=== PATIENT | male | born 1940 | race Caucasian/White ===

== ENCOUNTER 2019-01-07 05:24 | Inpatient (IN) | payer MEDICARE, OTHER ==
[2019-01-07 05:43] LABS: AADO2 Arterial 213.3 mmHg (7.0-24.0); Allen Test ACCEPTAB; Arterial Base Excess 2.2 mmol/L (-3.0-3); Arterial Blood Gas Oxygen Sat 99.6 mmHG (95.0-100.0); Arterial COHb 0.3 % (0.0-3.0); Arterial Fraction of Oxyhgb 98.9 % (93.0-99.0); Arterial HCO3 26.5 mmol/L (22.0-26.0); Arterial MetHb 0.4 % (0.0-1.5); Arterial pCO2 40.3 mmhg (35-45); Blood Gas IEPAP 15/5; Blood Gas PS 10; MODE MASK - BIPAP; Site Left Radial
[2019-01-07 05:50] LABS: ADD MAN DIFF? NO
[2019-01-07 05:53] LABS: ABNORMAL IP MESSAGE 1; BASOPHIL # 0.1 10^3/ul (0.0-0.1); BASOPHILS % 0.5 % (0.0-2.0); EOSINOPHILS % 0.1 % (0.0-7.0); HEMATOCRIT 32.4 % (42.0-52.0); HEMOGLOBIN 9.8 g/dl (14.0-18.0); LYMPHOCYTES # 5.9 10^3/ul (0.8-2.9); LYMPHOCYTES % 39.8 % (15.0-51.0); MEAN CORPUSCULAR HEMOGLOBIN 28.8 pg (29.0-33.0); MEAN CORPUSCULAR HGB CONC 30.2 g/dl (32.0-37.0); MEAN CORPUSCULAR VOLUME 95.3 fl (82.0-101.0); MEAN PLATELET VOLUME 9.5 fl (7.4-10.4); MONOCYTE # 3.3 10^3/ul (0.3-0.9); MONOCYTES % 22.6 % (0.0-11.0); NEUTROPHIL # 4.5 10^3/ul (1.6-7.5); NEUTROPHILS % 30.4 % (39.0-77.0); NUCLEATED RED BLOOD CELLS # 0.7 10^3/ul (0.0-0.0); NUCLEATED RED BLOOD CELLS% 4.6 /100WBC (0.0-0.0); PLATELET COUNT 711 10^3/UL (140-415); POSITIVE DIFF @See below; RED CELL DISTRIBUTION WIDTH 17.7 % (11.5-14.5)
[2019-01-07 05:53] LABS: WHITE BLOOD COUNT 14.8 10^3/ul (4.8-10.8)
[2019-01-07] MEDS: SODIUM CHLORIDE 0.9% 1L BAG IV* (06:12)
[2019-01-07] MEDS: IPRATROPIUM (NEB) 0.5 MG/2.5 ML AMP INH (06:14)
[2019-01-07] MEDS: ALBUTEROL 0.5% (NEB) 2.5 MG/0.5 ML AMP INH (06:14)
[2019-01-07] MEDS: CEFEPIME 2GM/50 ML (PMX) 50 ML IVPB (06:17)
[2019-01-07 06:18] LABS: INR 1.03; PROTIME 13.6 Sec (11.9-14.9); PT RATIO 1.1
[2019-01-07 06:19] LABS: PARTIAL THROMBOPLASTIN TIME 30.5 Sec (23.0-35.0)
[2019-01-07 06:21] LABS: ALANINE AMINOTRANSFERASE 15 IU/L (13-69); ALBUMIN 3.7 g/dl (3.3-4.9); ALBUMIN/GLOBULIN RATIO 1.19; ALKALINE PHOSPHATASE 81 IU/L (42-121); ANION GAP 10 (5-13); ASPARTATE AMINO TRANSFERASE 27 IU/L (15-46); BILIRUBIN,INDIRECT 0.4 mg/dl (0-1.1); BILIRUBIN,TOTAL 0.4 mg/dl (0.2-1.3); BLOOD UREA NITROGEN 16 mg/dl (7-20); CALCIUM 8.9 mg/dl (8.4-10.2); CARBON DIOXIDE 29 mmol/L (21-31); CHLORIDE 103 mmol/L (97-110); CREATININE 1.24 mg/dl (0.61-1.24); GLUCOSE 146 mg/dl (70-220); POTASSIUM 3.6 mmol/L (3.5-5.1); SODIUM 142 mmol/L (135-144); TOTAL PROTEIN 6.8 g/dl (6.1-8.1)
[2019-01-07 06:31] LABS: B-TYPE NATRIURETIC PEPTIDE 1220 PG/ML (0-450); TROPONIN-I 0.013 ng/ml (0.000-0.120)
[2019-01-07] MEDS: VANCOMYCIN 1 GM (PMX) 250 ML IVPB (06:48)
[2019-01-07] MEDS ORDERED: ONDANSETRON 4 MG INJ IV ×2 (07:00→07:30)
[2019-01-07] MEDS ORDERED: ACETAMINOPHEN 325 MG TAB PO ×2 (07:00→07:30)
[2019-01-07] MEDS ORDERED: LORAZEPAM 2 MG INJ IV (07:30)
[2019-01-07] MEDS ORDERED: NACL 0.9% 3 ML SYG IV (07:30)
[2019-01-07] MEDS ORDERED: hydrALAzine 20 MG INJ IV (07:30)
[2019-01-07] MEDS ORDERED: DOCUSATE SODIUM 100 MG CAP PO (07:30)
[2019-01-07] MEDS ORDERED: VANCOMYCIN IV PER PHARMACY XX (07:30)
[2019-01-07] MEDS ORDERED: ALBUTEROL/IPRATROPIUM (NEB) 3 ML AMP HHN (07:30)
[2019-01-07] MEDS ORDERED: morphine 2 MG INJ IV (07:30)
[2019-01-07] MEDS ORDERED: MAGNESIUM HYDROXIDE 30ML CUP PO (07:30)
[2019-01-07] MEDS ORDERED: NITROGLYCERIN (SL) 0.4 MG TAB SL (07:30)
[2019-01-07 08:08] LABS: ANISOCYTOSIS 1+ (0-0); BAND NEUTROPHILS #M 2.2 10^3/ul (0.0-0.6); BAND NEUTROPHILS % (M) 15 % (0-4); BASOPHIL #M 0.2 10^3/ul (0.0-0.0); BASOPHILS % (M) 2 % (0-2); EOSINOPHILS % (M) 3 % (0-7); ERYTHROBLAST% (NRBC) (M) 5 % (0-0); LYMPHOCYTES #M 4.5 10^3/ul (0.8-2.9); LYMPHOCYTES % (M) 31 % (15-51); METAMYELOCYTES #M 0.2 10^3/ul (0.0-0.0); METAMYELOCYTES %M 2 % (0-0); MONOCYTE #M 2.5 10^3/ul (0.3-0.9); MONOCYTES % (M) 17 % (0-11); MYELOCYTES #M 0.5 10^3/ul (0.0-0.0); MYELOCYTES % (M) 4 % (0-0); OVALOCYTES 1+ (0-0); PLATELET ESTIMATE INCREASED; POIKILOCYTOSIS 1+ (0-0); POLYCHROMASIA 3+ (0-0); PROMYELOCYTES #M 0.2 10^3/ul (0-0); PROMYELOCYTES % (M) 2 % (0-0); REACTIVE LYMPHOCYTES #M 1.4 10^3/ul (0.0-0.0); REACTIVE LYMPHOCYTES% (M) 10 % (0-0); SEG NEUT #M 2.4 10^3/ul (1.6-7.5); SEGMENTED NEUTROPHILS (M) % 14 % (39-77); SMUDGE%M 11 % (0-0); TEAR DROP CELLS 1+ (0-0)
[2019-01-07 08:50] LABS: INR 1.11; PROTIME 14.4 Sec (11.9-14.9); PT RATIO 1.1
[2019-01-07] MEDS: HYDROCODONE/APAP (5/325) TAB PO (08:50)
[2019-01-07] MEDS: HEPARIN 5,000 UNIT/1 ML VIAL SC ×2 (08:50→20:48)
[2019-01-07] MEDS: ESCITALOPRAM 10 MG TAB PO (08:50)
[2019-01-07 08:51] LABS: PARTIAL THROMBOPLASTIN TIME 30.5 Sec (23.0-35.0)
[2019-01-07 08:55] LABS: LACTIC ACID 3.5 mmol/L (0.5-2.0)
[2019-01-07] MEDS: FLUTICASONE/VILANTEROL 100-25 INH (09:00)
[2019-01-07] MEDS ORDERED: NON-FORMULARY/PATIENT OWN MED (Salmeterol Xinaf/Fluticasone* (Advair*) 1 INH) INH (09:00)
[2019-01-07 09:09] LABS: FREE T4 (FREE THYROXINE) 1.16 ng/dl (0.85-1.93)
[2019-01-07] MEDS: SOD CHLORIDE 0.45% 1,000 ML IV (09:14)
[2019-01-07] MEDS: ASPIRIN 81 MG TAB PO (10:23)
[2019-01-07 10:31] LABS: MAGNESIUM 1.6 mg/dl (1.7-2.5)
[2019-01-07 11:10] LABS: CREATINE KINASE 28 IU/L (23-200)
[2019-01-07 11:18] LABS: LACTIC ACID 2.8 mmol/L (0.5-2.0)
[2019-01-07 11:21] LABS: CK INDEX 1.5; CK-MB 0.43 ng/ml (0.0-2.4); TROPONIN-I 0.018 ng/ml (0.000-0.120)
[2019-01-07] MEDS: PIPER-TAZO 3.375 GM IV (PMX) 100 ML IVPB ×3 (11:31→22:45)
[2019-01-07] MEDS ORDERED: ALBUTEROL 18 GM INHALER INH (12:00)
[2019-01-07] MEDS: VANCOMYCIN HCL 1.25 GM in SOD CHLORIDE 0.9% 250 ML IVPB (12:29)
[2019-01-07] MEDS: IPRATROPIUM (NEB) 0.5 MG/2.5 ML AMP HHN ×3 (13:10→20:17)
[2019-01-07] MEDS: LEVALBUTEROL (NEB) 1.25 MG/0.5 ML AMP HHN ×3 (13:10→20:17)
[2019-01-07 15:24] LABS: CREATINE KINASE 55 IU/L (23-200)
[2019-01-07 15:29] LABS: LACTIC ACID 7.8 mmol/L (0.5-2.0)
[2019-01-07 15:34] LABS: CK INDEX 1.3
[2019-01-07 15:38] LABS: TROPONIN-I 0.021 ng/ml (0.000-0.120)
[2019-01-07 16:00] LABS: PROCALCITONIN 0.46 ng/mL (0.00-0.10)
[2019-01-07] MEDS: SOD CHLORIDE 0.9% 500 ML IV (17:10)
[2019-01-07] MEDS: BUPROPION 75 MG TAB PO (20:43)
[2019-01-07] MEDS: ALPRAZOLAM 0.5 MG TAB PO (22:06)
[2019-01-08] MEDS: IPRATROPIUM (NEB) 0.5 MG/2.5 ML AMP HHN ×6 (00:36→21:12)
[2019-01-08] MEDS: LEVALBUTEROL (NEB) 1.25 MG/0.5 ML AMP HHN ×6 (00:36→21:12)
[2019-01-08 05:25] LABS: ADD MAN DIFF? NO
[2019-01-08 05:33] LABS: ABNORMAL IP MESSAGE 1; BASOPHIL # 0.1 10^3/ul (0.0-0.1); BASOPHILS % 0.8 % (0.0-2.0); EOSINOPHILS % 0.1 % (0.0-7.0); HEMATOCRIT 27.8 % (42.0-52.0); HEMOGLOBIN 8.4 g/dl (14.0-18.0); LYMPHOCYTES # 1.5 10^3/ul (0.8-2.9); LYMPHOCYTES % 15.9 % (15.0-51.0); MEAN CORPUSCULAR HEMOGLOBIN 28.5 pg (29.0-33.0); MEAN CORPUSCULAR HGB CONC 30.2 g/dl (32.0-37.0); MEAN CORPUSCULAR VOLUME 94.2 fl (82.0-101.0); MEAN PLATELET VOLUME 9.6 fl (7.4-10.4); MONOCYTE # 2.3 10^3/ul (0.3-0.9); NEUTROPHIL # 4.5 10^3/ul (1.6-7.5); NEUTROPHILS % 49.7 % (39.0-77.0); NUCLEATED RED BLOOD CELLS # 0.3 10^3/ul (0.0-0.0); NUCLEATED RED BLOOD CELLS% 3.1 /100WBC (0.0-0.0); PLATELET COUNT 531 10^3/UL (140-415); POSITIVE DIFF @See below; RED BLOOD COUNT 2.95 10^6/ul (4.70-6.10); RED CELL DISTRIBUTION WIDTH 18.3 % (11.5-14.5)
[2019-01-08 05:33] LABS: WHITE BLOOD COUNT 9.1 10^3/ul (4.8-10.8)
[2019-01-08 05:49] LABS: ANION GAP 4 (5-13); BLOOD UREA NITROGEN 14 mg/dl (7-20); CALCIUM 8.2 mg/dl (8.4-10.2); CARBON DIOXIDE 29 mmol/L (21-31); CHLORIDE 110 mmol/L (97-110); CREATININE 1.14 mg/dl (0.61-1.24); GLUCOSE 104 mg/dl (70-220); MAGNESIUM 1.7 mg/dl (1.7-2.5); PHOSPHORUS 3.6 mg/dl (2.5-4.9); POTASSIUM 3.7 mmol/L (3.5-5.1); SODIUM 143 mmol/L (135-144)
[2019-01-08 05:54] LABS: CHOLESTEROL 113 mg/dl (100-200)
[2019-01-08 05:54] LABS: CHOL/HDL RATIO 2.7 RATIO; HDL CHOLESTEROL 41 mg/dl (31-75); LDL CHOLESTEROL,CALCULATED 54 mg/dl; TRIGLYCERIDES 91 mg/dl (0-149)
[2019-01-08 05:58] LABS: MONOCYTES % 25.3 % (0.0-11.0)
[2019-01-08] MEDS: PIPER-TAZO 3.375 GM IV (PMX) 100 ML IVPB ×3 (06:15→18:00)
[2019-01-08] MEDS: PANTOPRAZOLE (EC) 40 MG TAB PO (06:15)
[2019-01-08 06:18] LABS: THYROID STIMULATING HORMONE 0.722 MIU/L (0.465-4.680)
[2019-01-08] MEDS: ALENDRONATE 10 MG TAB PO (07:00)
[2019-01-08 07:09] LABS: PROCALCITONIN 0.34 ng/mL (0.00-0.10)
[2019-01-08] MEDS: MAGNESIUM SULFATE 1 GM/D5W 100 ML IVPB (08:44)
[2019-01-08] MEDS: ESCITALOPRAM 10 MG TAB PO (08:44)
[2019-01-08] MEDS: ASPIRIN 81 MG TAB PO (08:45)
[2019-01-08] MEDS: BUPROPION 75 MG TAB PO ×2 (08:45→20:45)
[2019-01-08] MEDS: HEPARIN 5,000 UNIT/1 ML VIAL SC ×2 (08:56→20:58)
[2019-01-08] MEDS: FLUTICASONE/VILANTEROL 100-25 INH (09:00)
[2019-01-08] MEDS: POTASSIUM CHLORIDE (SR) 20 MEQ TAB PO (12:54)
[2019-01-08] MEDS: VANCOMYCIN HCL 1.25 GM in SOD CHLORIDE 0.9% 250 ML IVPB (13:00)
[2019-01-08] MEDS: DILTIAZEM (CD) 120 MG CAP PO (16:52)
[2019-01-08] MEDS: ALPRAZOLAM 0.5 MG TAB PO (20:45)
[2019-01-09] MEDS: PIPER-TAZO 3.375 GM IV (PMX) 100 ML IVPB ×4 (00:09→18:08)
[2019-01-09] MEDS: IPRATROPIUM (NEB) 0.5 MG/2.5 ML AMP HHN ×6 (01:00→21:51)
[2019-01-09] MEDS: LEVALBUTEROL (NEB) 1.25 MG/0.5 ML AMP HHN ×6 (01:00→21:51)
[2019-01-09] MEDS: PANTOPRAZOLE (EC) 40 MG TAB PO (06:21)
[2019-01-09] MEDS: ALENDRONATE 10 MG TAB PO (07:09)
[2019-01-09 07:29] LABS: ADD MAN DIFF? NO
[2019-01-09 07:37] LABS: WHITE BLOOD COUNT 11.7 10^3/ul (4.8-10.8)
[2019-01-09 07:37] LABS: ABNORMAL IP MESSAGE 1; BASOPHIL # 0.1 10^3/ul (0.0-0.1); BASOPHILS % 0.8 % (0.0-2.0); EOSINOPHILS # 0.2 10^3/ul (0.0-0.5); LYMPHOCYTES # 2.3 10^3/ul (0.8-2.9); LYMPHOCYTES % 19.2 % (15.0-51.0); MEAN CORPUSCULAR VOLUME 93.2 fl (82.0-101.0); MEAN PLATELET VOLUME 9.5 fl (7.4-10.4); MONOCYTE # 2.6 10^3/ul (0.3-0.9); MONOCYTES % 21.8 % (0.0-11.0); NEUTROPHIL # 6.1 10^3/ul (1.6-7.5); NEUTROPHILS % 51.9 % (39.0-77.0); NUCLEATED RED BLOOD CELLS # 0.1 10^3/ul (0.0-0.0); NUCLEATED RED BLOOD CELLS% 0.8 /100WBC (0.0-0.0); PLATELET COUNT 541 10^3/UL (140-415); RED BLOOD COUNT 3.22 10^6/ul (4.70-6.10)
[2019-01-09 07:59] LABS: ANION GAP 5 (5-13); BLOOD UREA NITROGEN 12 mg/dl (7-20); CALCIUM 8.3 mg/dl (8.4-10.2); CARBON DIOXIDE 29 mmol/L (21-31); CHLORIDE 108 mmol/L (97-110); CREATININE 1.15 mg/dl (0.61-1.24); GLUCOSE 111 mg/dl (70-220); SODIUM 142 mmol/L (135-144)
[2019-01-09 09:12] LABS: PROCALCITONIN 0.25 ng/mL (0.00-0.10)
[2019-01-09] MEDS: FLUTICASONE/VILANTEROL 100-25 INH (09:54)
[2019-01-09] MEDS: BUPROPION 75 MG TAB PO ×2 (09:55→20:32)
[2019-01-09] MEDS: HYDROCODONE/APAP (5/325) TAB PO (09:55)
[2019-01-09] MEDS: ESCITALOPRAM 10 MG TAB PO (09:56)
[2019-01-09] MEDS: ASPIRIN 81 MG TAB PO (09:56)
[2019-01-09] MEDS: DILTIAZEM (CD) 120 MG CAP PO (09:56)
[2019-01-09] MEDS: DOXYCYCLINE 100 MG TAB PO ×2 (09:56→20:32)
[2019-01-09] MEDS: HEPARIN 5,000 UNIT/1 ML VIAL SC (10:03)
[2019-01-09] MEDS: ALPRAZOLAM 0.5 MG TAB PO (20:32)
[2019-01-09] MEDS: APIXABAN 5 MG TABLET PO (20:33)
[2019-01-10] MEDS: PIPER-TAZO 3.375 GM IV (PMX) 100 ML IVPB ×3 (00:19→12:00)
[2019-01-10] MEDS: IPRATROPIUM (NEB) 0.5 MG/2.5 ML AMP HHN ×4 (01:20→12:54)
[2019-01-10] MEDS: LEVALBUTEROL (NEB) 1.25 MG/0.5 ML AMP HHN ×4 (01:20→12:54)
[2019-01-10] MEDS: PANTOPRAZOLE (EC) 40 MG TAB PO (06:23)
[2019-01-10] MEDS: ALENDRONATE 10 MG TAB PO (06:23)
[2019-01-10] MEDS: FLUTICASONE/VILANTEROL 100-25 INH (09:00)
[2019-01-10] MEDS: BUPROPION 75 MG TAB PO (09:01)
[2019-01-10] MEDS: APIXABAN 5 MG TABLET PO (09:01)
[2019-01-10] MEDS: ESCITALOPRAM 10 MG TAB PO (09:01)
[2019-01-10] MEDS: DOXYCYCLINE 100 MG TAB PO (09:01)
[2019-01-10] MEDS: DILTIAZEM (CD) 120 MG CAP PO (09:02)
[2019-01-10 09:26] LABS: ADD MAN DIFF? NO
[2019-01-10 09:28] LABS: WHITE BLOOD COUNT 9.8 10^3/ul (4.8-10.8)
[2019-01-10 09:28] LABS: ABNORMAL IP MESSAGE 1; BASOPHIL # 0.1 10^3/ul (0.0-0.1); EOSINOPHILS % 0.1 % (0.0-7.0); HEMATOCRIT 30.8 % (42.0-52.0); HEMOGLOBIN 9.2 g/dl (14.0-18.0); LYMPHOCYTES # 1.3 10^3/ul (0.8-2.9); LYMPHOCYTES % 13.7 % (15.0-51.0); MEAN CORPUSCULAR HEMOGLOBIN 28.1 pg (29.0-33.0); MEAN CORPUSCULAR HGB CONC 29.9 g/dl (32.0-37.0); MEAN CORPUSCULAR VOLUME 94.2 fl (82.0-101.0); MEAN PLATELET VOLUME 9.2 fl (7.4-10.4); NEUTROPHIL # 6.1 10^3/ul (1.6-7.5); NEUTROPHILS % 62.2 % (39.0-77.0); NUCLEATED RED BLOOD CELLS% 0.4 /100WBC (0.0-0.0); PLATELET COUNT 496 10^3/UL (140-415); POSITIVE DIFF @See below; RED BLOOD COUNT 3.27 10^6/ul (4.70-6.10); RED CELL DISTRIBUTION WIDTH 17.8 % (11.5-14.5)
[2019-01-10 09:46] LABS: ANION GAP 6 (5-13); BLOOD UREA NITROGEN 10 mg/dl (7-20); CALCIUM 8.5 mg/dl (8.4-10.2); CARBON DIOXIDE 30 mmol/L (21-31); CHLORIDE 108 mmol/L (97-110); CREATININE 1.22 mg/dl (0.61-1.24); GLUCOSE 116 mg/dl (70-220); POTASSIUM 4.1 mmol/L (3.5-5.1); SODIUM 144 mmol/L (135-144)
== END 2019-01-10 14:10 | disposition home or self-care (01) | DRG 871 ==
LOC: E/R 05:24 → 6WM 06:55
PROC: 5A09357 Assistance with Respiratory Ventilation, Less than 24 Consecutive Hours, Continuous Positive Airway Pressure (ICD-10-PCS; principal; 2019-01-07)
DX: A41.9 Sepsis, unspecified organism (principal); J18.9 Pneumonia, unspecified organism; C34.90 Malignant neoplasm of unspecified part of unspecified bronchus or lung; C79.51 Secondary malignant neoplasm of bone; J44.1 Chronic obstructive pulmonary disease with (acute) exacerbation; G47.33 Obstructive sleep apnea (adult) (pediatric); F32.9 Major depressive disorder, single episode, unspecified; F41.9 Anxiety disorder, unspecified; G89.29 Other chronic pain; E66.9 Obesity, unspecified; Z68.35 Body mass index [BMI] 35.0-35.9, adult; Z99.81 Dependence on supplemental oxygen; Z90.2 Acquired absence of lung [part of]; I48.0 Paroxysmal atrial fibrillation; M81.0 Age-related osteoporosis without current pathological fracture
CPT/HCPCS: 36415; 36600; 70450; 71045; 80048; 80053; 80061; 82550; 82553; 82803; 83036; 83605; 83735; 83880; 84100; 84145; 84439; 84443; 84484; 85025; 85610; 85730; 87040-91; 87070; 87081; 92610; 93005; 93306; 93970; 94640; 94644; 94660; 94664; 96365; 96375; 97161; 97166; 99285-25